=== PATIENT | male | born 1950 | race Caucasian/White ===

== ENCOUNTER 2019-06-24 16:16 | Inpatient (IN) | payer OTHER ==
[~2019-06-24] VITALS: Ht 185.4 cm; Wt 83.2 kg
[2019-06-24 18:29] LABS: BASOPHILS # (AUTO) 0.02 x10^3/uL (0-0.1); BASOPHILS % (AUTO) 0 % (0-1); EOSINOPHILS # (AUTO) 0.11 x10^3/uL (0-0.4); EOSINOPHILS % (AUTO) 2 % (1-7); LYMPHOCYTES # (AUTO) 0.52 x10^3/uL (1-3.4); LYMPHOCYTES % (AUTO) 7 % (22-44); MD NO; MEAN CORPUSCULAR HEMOGLOBIN 27.3 pg (27.5-34.5); MEAN CORPUSCULAR HGB CONC 32.2 g/dL (33.2-36.2); MEAN CORPUSCULAR VOLUME 84.8 fL (81-97); MEAN PLATELET VOLUME 6.9 fL (7.4-10.4); MONOCYTES # (AUTO) 0.43 x10^3/uL (0.2-0.8); MONOCYTES % (AUTO) 6 % (2-9); NEUTROPHILS # (AUTO) 6.42 x10^3/uL (1.8-6.8); NEUTROPHILS % (AUTO) 86 % (42-75); PLATELET COUNT 255 x10^3/uL (130-400); RED BLOOD COUNT 4.08 x10^6/uL (4.38-5.82); RED CELL DISTRIBUTION WIDTH 17.1 % (9.4-14.8)
[2019-06-24] MEDS ORDERED: ONDANSETRON 2MG/ML, 2ML ONE (18:29)
[2019-06-24] MEDS ORDERED: MORPHINE SULFATE 4 MG/ML, 1ML ONE (18:29)
[2019-06-24] MEDS ORDERED: ONDANSETRON 2MG/ML, 2ML IVPush ONE (18:30)
[2019-06-24] MEDS ORDERED: MORPHINE SULFATE 4 MG/ML, 1ML IVPush PRN (18:30)
[2019-06-24] MEDS ORDERED: PLEASE ENTER ALLERGIES MC SCH (18:30)
[2019-06-24 18:39] LABS: ALBUMIN 2.9 g/dL (3.4-5.0); ANION GAP 8 mmol/L (5-15); CALCIUM 9.1 mg/dL (8.5-10.1); CHLORIDE 108 mmol/L (98-107); CREATININE 2.94 mg/dL (0.7-1.3)
--- NOTE | 2019-06-24 19:40 | NUR ---
PT SITTING IN BED, READING HIS BOOK. UP TO RESTROOM USING WALKER WITH STRONG, INDEPENDENT GAIT. PT UNABLE TO PROVIDE CLEAN URINE SAMPLE DUE TO URINE STREAM FLOWING FROM RECTUM. PT HAS A COMPLETE URINARY OCCLUSION PER UROLOGY. ERP AWARE, DENIES NEED FOR URINE SAMPLE AT THIS TIME. PT RETURNED TO BED, IV STARTED. DENIES ANY FURTHER NEEDS OR CONCERNS. CALL LIGHT IN REACH.
--- NOTE | 2019-06-24 20:15 | NUR ---
Received report from previous RN. Reviewed patient's extensive medical history. RN to bedside, patient resting comfortably. Patient requesting water, patient aware needs to remain NPO till plan of care can be established, given possible urology procedure patient is aware of.
[2019-06-24] MEDS: OXYcodone/APAP 10/325MG TABLET PO PRN (23:04)
[2019-06-24 23:09] VITALS: BP 151/85
[2019-06-25] MEDS ORDERED: LACTATED RINGERS 1,000 ML IV SCH
[2019-06-25 01:42] VITALS: BP 109/65
[2019-06-25 05:01] LABS: INTERNATIONAL NORMALIZED RATIO 0.97 (0.93-1.1); PROTHROMBIN TIME 10.2 Seconds (9.6-11.5)
[2019-06-25 05:02] LABS: ANION GAP 4 mmol/L (5-15); CALCIUM 9.1 mg/dL (8.5-10.1); CHLORIDE 108 mmol/L (98-107); CREATININE 3.09 mg/dL (0.7-1.3)
[2019-06-25 10:30] VITALS: BP 123/76
[2019-06-25] MEDS ORDERED: LIDOCAINE 1%, 20ML ONE (13:32)
[2019-06-25] MEDS ORDERED: FENTANYL PF 100 MCG/2ML ONE (13:50)
[2019-06-25] MEDS ORDERED: MIDAZOLAM 1 MG/ML, 5ML ONE (13:50)
[2019-06-25] MEDS ORDERED: FLUMAZENIL 0.1 MG/1 ML, 5ML ONE (13:50)
[2019-06-25] MEDS ORDERED: NALOXONE 1 MG/ML, 2ML ONE (13:50)
[2019-06-25] MEDS ORDERED: CEFAZOLIN PMX 1GM/50ML 50 ML ONE (13:53)
[2019-06-25] MEDS: OXYcodone/APAP 10/325MG TABLET PO PRN (17:06)
[2019-06-25 18:36] LABS: CULTURE INDICATED? YES; MICROSCOPIC INDICATED
[2019-06-25] MEDS ORDERED: MORPHINE SULFATE 4 MG/ML, 1ML ONE (18:41)
[2019-06-25] MEDS ORDERED: ONDANSETRON 2MG/ML, 2ML ONE (18:41)
[2019-06-25] MEDS ORDERED: MORPHINE SULFATE 4 MG/ML, 1ML IVPush ONE (19:00)
[2019-06-25] MEDS ORDERED: ONDANSETRON 2MG/ML, 2ML IVPush PRN (19:00)
[2019-06-25 20:29] VITALS: BP 99/63
[2019-06-25] MEDS ORDERED: morphine SULFATE/PF 0.5 MG/ML, 10ML IV PRN (22:00)
[2019-06-26 03:27] VITALS: BP 146/79
[2019-06-26 07:18] VITALS: BP 83/59
[2019-06-26 07:21] LABS: ANION GAP 10 mmol/L (5-15); CALCIUM 8.9 mg/dL (8.5-10.1); CHLORIDE 108 mmol/L (98-107)
[2019-06-26 07:22] LABS: CREATININE 3.12 mg/dL (0.7-1.3)
== END 2019-06-26 13:25 | disposition home or self-care (01) | DRG 694 ==
LOC: ED 21:43 → INTOOBSV 21:58 → EDIP 21:58 → 3N 22:17 → OBSVTOIN 06-25 14:04 → 4NW 06-25 15:20 → DCLOUNGE 06-26 13:18
PROVIDERS: ADMIT Family Medicine; ATTEND Family Medicine
PROC: 0T9430Z Drainage of Left Kidney Pelvis with Drainage Device, Percutaneous Approach (ICD-10-PCS; principal; 2019-06-25)
PROC: 0T9330Z Drainage of Right Kidney Pelvis with Drainage Device, Percutaneous Approach (ICD-10-PCS; 2019-06-25)
DX: N21.0 Calculus in bladder (principal); N13.39 Other hydronephrosis; M48.56XA Collapsed vertebra, not elsewhere classified, lumbar region, initial encounter for fracture; N17.9 Acute kidney failure, unspecified; Z88.6 Allergy status to analgesic agent; D64.9 Anemia, unspecified; G89.29 Other chronic pain; M85.80 Other specified disorders of bone density and structure, unspecified site; Z66 Do not resuscitate; Z85.048 Personal history of other malignant neoplasm of rectum, rectosigmoid junction, and anus; Z92.3 Personal history of irradiation; Z93.3 Colostomy status; I71.4 Abdominal aortic aneurysm, without rupture
CPT/HCPCS: 36415; 50432; 74176; 80048; 81001; 82040; 85025; 85610; 85730; 87077; 87086; 87186; 96374; 96375; 99156; 99157; C1894; G0378; J0690; J2250; J2405; J3010; C1729; C1769; J2270; J2310